=== PATIENT | female | born 1955 | race Caucasian/White ===

== ENCOUNTER 2017-02-24 00:19 | Emergency (ER) | payer OTHER ==
[~2017-02-24] VITALS: Ht 162.6 cm; Wt 81.7 kg
[~2017-02-24 00:19] MED LIST: EEMT HS 0.625-1 EACH PO; SUMATRIPTAN SU100 MG PO; TRAMADOL HCL50 MG PO; TRIAMTERENE-HC1 EAC3 PO
[2017-02-24] MEDS ORDERED: SPIRONOLACTONE25 MG PO (00:40)
[2017-02-24] MEDS ORDERED: FUROSEMIDE20 MG PO (00:40)
[2017-02-24] MEDS ORDERED: MAGNESIUM400 M1 PO (00:42)
[2017-02-24] MEDS ORDERED: VITAMIN C500 M1 PO (00:42)
[2017-02-24] MEDS ORDERED: TURMERIC500 M2 PO (00:43)
[2017-02-24] MEDS ORDERED: VITAMIN B122500 MCG PO (00:44)
[2017-02-24] MEDS ORDERED: MACULAR HEALTH1 EACH PO (00:44)
[2017-02-24] MEDS ORDERED: MELATONIN10 MG PO (00:44)
--- NOTE | 2017-02-24 21:45 | EKG ---
[facility] [address] [facility] [place] [address] Signed Sinus rhythm with 1st degree AV block Possible Left atrial enlargement Borderline ECG No previous ECGs available Confirmed by CYNTHIA MANLEY MD ([id number] on 02/24/2017 9:45:01 PM Electronically Signed By: CYNTHIA MANLEY MD 02/24/17 2145 PATIENT NAME: TON DONNELLY Electrocardiogram DATE OF : 53 PHYSICIAN: CYNTHIA MANLEY MD REPORT #: [id number] REPORT IS CONFIDENTIAL AND NOT TO BE RELEASED WITHOUT AUTHORIZATION
== END 2017-02-24 01:48 | disposition home or self-care (01) ==
LOC: ED 00:19
DX: R07.2 Precordial pain (principal); I10 Essential (primary) hypertension; Z88.1 Allergy status to other antibiotic agents; Z88.5 Allergy status to narcotic agent; Z79.899 Other long term (current) drug therapy; Z79.891 Long term (current) use of opiate analgesic
CPT/HCPCS: 71010; 80053; 84484; 85025; 93005; 93010; 99284

== ENCOUNTER 2024-01-20 14:10 | Emergency (ER) | payer MEDICARE, OTHER ==
[~2024-01-20] VITALS: Ht 162.6 cm; Wt 67.0 kg
[~2024-01-20 14:10] MED LIST changes: +FUROSEMIDE20 MG PO; +MACULAR HEALTH1 EACH PO; +MAGNESIUM400 M1 PO; +MELATONIN10 MG PO; +SPIRONOLACTONE25 MG PO; +TURMERIC500 M2 PO; +VITAMIN B122500 MCG PO; +VITAMIN C500 M1 PO
[2024-01-20] MEDS ORDERED: OXYCODONE HCL5 MG PO (14:19)
[2024-01-20] MEDS ORDERED: FLUCONAZOLE150 MG PO (14:19)
[2024-01-20] MEDS ORDERED: KETOROLAC TROMETHAMINE 30 MG/ML VIAL IV ONE (14:30)
[2024-01-20] MEDS ORDERED: diazePAM 10 MG/2 ML SYR IV ONE (14:30)
[2024-01-20] MEDS ORDERED: HYDROmorphone HCL 1 MG/ML SYR IV ONE (14:30)
[2024-01-20] MEDS ORDERED: METHOCARBAMOL500 MG PO (15:43)
[2024-01-20 15:55] VITALS: BP 114/57
== END 2024-01-20 15:55 | disposition home or self-care (01) ==
LOC: ED 14:10
DX: M62.838 Other muscle spasm (principal); I10 Essential (primary) hypertension; Z88.1 Allergy status to other antibiotic agents; Z88.8 Allergy status to other drugs, medicaments and biological substances; Z88.5 Allergy status to narcotic agent; Z79.899 Other long term (current) drug therapy
CPT/HCPCS: 73502; 96374; 96375; 99283-25; J1171; J1885; J3360